=== PATIENT | female | born 2000 | race Caucasian/White ===

== ENCOUNTER 2023-10-17 08:25 | Emergency (ER) | payer OTHER, SELFPAY ==
[2023-10-17 08:26] VITALS: BP 123/81
[2023-10-17 09:55] VITALS: BP 112/72
[2023-10-17 09:58] VITALS: BMI 31.8
--- NOTE | 2023-10-17 10:08 | ED.GENMED ---
History of Present Illness
General
Chief Complaint: Abdominal Symptoms
Source: patient, records and family
Exam Limitations: none
Time Seen by Provider: 10/17/23 09:15
Nursing documentation reviewed up to this point in time: agreed with
Travel History
Have you had any contact with someone who has COVID-19?: No
Do you have any symptoms of coronavirus? Fever > 100 degrees, chills, cough, shortness of breath, sore throat, loss of taste or smell, muscle aches, or headache?: No
History of Present Illness
History of Present Illness:
Patient is a 23-year-old female presents to the emergency department complaining of nausea and vomiting that started yesterday. Patient admits to drinking the night before. Patient had some diarrhea yesterday but none today. Patient denies any
abdominal pain. Patient admits to thirst and feeling dehydrated. Patient has a history of similar episodes in the past. Patient was to have an upper endoscopy but due to insurance issues has not. Patient denies fever or chills. Patient denies
any symptoms. Patient has an IUD and her last period was couple months ago and has very light bleeding now. Unsure if this is actually her period or not.
Past History
Past History
ED Past Medical History: Psychiatric
ED Past Surgical History: None
Patient has exhibited threatening behavior?: No
PSI?: No
Social History
Tobacco: Non-smoker
Personal: Single
Living: with family
Employment: Student
Review of Systems
Review of Systems
All Other Systems: ROS reviewed and negative except as documented in HPI and ROS
Constitutional: Reports fatigue; Denies fever or chills
EENT: Reports no symptoms
Respiratory: Reports no symptoms
Cardiac: Reports no symptoms
ABD/GI: Reports nausea, vomiting, diarrhea and anorexia; Denies abdominal pain, bloody stools or black stools
: Reports no symptoms
Musculoskeletal: Reports no symptoms
Skin: Reports no symptoms
Neurological: Reports no symptoms
Hematologic/Lymphatic: Reports no symptoms
Psychiatric: Reports no symptoms
Phy Exam
Physical Exam
Physical Exam:
Physical Exam
General: mild to moderate distress, alert and appropriate, well nourished, dry mucous membranes
HENT: Normocephalic, supple with no lymphadenopathy, no thyromegaly
Eyes: Clear sclera, conjuctiva without injection
Heart: Regular rhythm and rate. No S3, S4. No murmur.
Lungs: No respiratory distress, no stridor, lung sounds clear and equal bilaterally
Abdomen: Soft, nontender, no organomegaly, no CVA tenderness, BS good
Neuro: Alert and oriented x 3, CN II - XII intact, no motor focality, no cerebellar dysfunction
Skin: no rash
Psychiatric: well kept. interactive and cooperative
Extremities: No edema, cyanosis, tenderness, Good and equal peripheral pulses.
Course
Orders/Labs/Results
Orders:
Orders
10/17/23 10:06
0.9% Sodium Chloride 1000 ml [Nss] 1,000 ml IV BOLUS
Ondansetron Injectable [Zofran] 4 mg IV NOW STA
Pantoprazole [Protonix IV] 80 mg IV NOW STA
10/17/23 10:07
Test Result ONCE
10/17/23 10:33
Complete Blood Count/With Diff Urgent
Comprehensive Metabolic Panel Urgent
HCG, Serum Qualitative Screen Urgent
Lipase Urgent
10/17/23 10:40
Clonazepam [Klonopin] 1 mg PO NOW STA
Abnormal Lab Results
10/17/23
10:33
WBC 10.9 H 10^3/uL
(4.8-10.8)
MCV 79.6 L fL
(81.0-99.0)
MCH 25.7 L pg
(27.0-31.0)
MCHC 32.3 L g/dL
(33.0-37.0)
RDW 16.1 H %
(11.5-14.5)
MPV 10.5 H fL
(7.4-10.4)
Absolute Neuts (auto) 7.7 H 10^3/uL
(1.4-6.5)
Absolute Monos (auto) 1.0 H 10^3/uL
(0.1-0.6)
Lymphocytes % 17.9 L %
(20.5-51.1)
Sodium 134 L mmol/L
(135-145)
Potassium 3.4 L mmol/L
(3.5-5.1)
Lipase 21 L U/L
(23-300)
10/17/23 10:33
10/17/23 10:33
Vital Signs
Initial and Last Documented VS:
Initial Vital Signs
Temp Pulse Resp BP Pulse Ox
98.7 F 94 18 123/81 97
10/17/23 08:26 10/17/23 08:26 10/17/23 08:26 10/17/23 08:26 10/17/23 08:26
Last Documented Vital Signs
Temp Pulse Resp BP Pulse Ox
98.4 F 72 16 112/72 98
10/17/23 10:14 10/17/23 10:14 10/17/23 10:14 10/17/23 10:14 10/17/23 10:14
*Radiology
Radiology exam reviewed: other (na)
*Pulse Oximetry
Patient hypoxic: no
*EKG
Interpreted by ED Provider?: NA
*Pilot Can Router Interpretation
Rate: Pilot Can Router- N/A
*Critical Care Note
Total Time (30-74mins, 75-104mins- exclusive of procedures): Not Applicable
Update Note
Update Note:
Patient feeling better. Will be discharged on Zofran and Protonix.
ED Attending Note
-
Portions of this chart may have been created with voice recognition software.� Occasional wrong word or��sound alike� substitutions may have occurred due to the inherent limitations of voice recognition software.
Discharge Plan
Departure
Patient Disposition: Home (Routine Discharge)
Date of Disposition: 10/17/23
Time of Disposition: 12:38
Patient with high blood pressure during this ER visit?: No
Condition: Fair
Covid-19: Not Applicable
Discharge Problem:
Acute gastritis without hemorrhage, Acute dehydration
Instructions: Dehydration, Adult (DC), [place] Diet, Nausea and Vomiting, Adult (DC)
Prescriptions:
New
ondansetron 8 mg tablet,disintegrating
8 mg PO TID PRN (Reason: nausea and vomiting) Qty: 30 0RF
pantoprazole [Protonix] 40 mg tablet,delayed release (DR/EC)
40 mg PO BID Qty: 30 0RF
No Action
clonazepam 1 mg tablet
1 mg PO HS
folic acid 1 mg Tablet
1 mg PO QPM
hydroxyzine pamoate 25 mg capsule
25 mg PO HS
hydroxyzine pamoate 25 mg capsule
25 mg PO DAILYPRN PRN (Reason: anxiety)
Trintellix 10 mg tablet
10 mg PO QPM
dexmethylphenidate [Focalin XR] 25 mg Capsule,Er Biphasic 50-50
25 mg PO DAILY
ondansetron 4 mg tablet,disintegrating
4 mg PO Q8H PRN (Reason: nausea and vomiting) Qty: 10 0RF
promethazine 25 mg suppository
25 mg VA Q6H PRN (Reason: nausea and vomiting) Qty: 12 0RF
dicyclomine 20 mg tablet
20 mg PO QID Qty: 20 0RF
prochlorperazine maleate [Compazine] 5 mg tablet
5 mg PO BID PRN (Reason: nausea and vomiting) Qty: 14 0RF
Referrals:
Donaldo Murry DO [Family Provider] - Follow up in 5-7 days
Activity Restrictions/Additional Instructions:
Continue present medications and therapy. Avoid alcohol.
Interventions
Interventions:
*Risk Screen - Suicide Last Done: 10/17/23 09:59
*General Assessment Last Done: 10/17/23 09:59
*Neglect/Abuse Screening Last Done: 10/17/23 09:59
*ED COVID-19 Vaccine History Last Done: 10/17/23 09:59
Discharge Date and Time
Print Language: VIETNAMESE
[2023-10-17 10:14] VITALS: BP 112/72
[2023-10-17] MEDS: NSS 1000 IV (10:22)
[2023-10-17] MEDS: PROTONIX IV 80 MG IV (10:22)
[2023-10-17] MEDS: ZOFRAN 4 MG IV (10:22)
[2023-10-17] MEDS: KLONOPIN 1 MG PO (10:48)
[2023-10-17 10:50] LABS: % Basophils 0.6 % (0-2); % Eosinophils 1.6 % (0-6); % Immature Granulocytes 0.3 % (0-0.5); % Lymphocytes 17.9 % (20.5-51.1); % Monocytes 9.3 % (1.7-9.3); % Neutrophils 70.3 % (42.2-75.2); Absolute Basophils 0.1 10^3/uL (0-0.2); Absolute Eosinophils 0.2 10^3/uL (0-0.7); Absolute Neutrophils 7.7 10^3/uL (1.4-6.5); Hemoglobin 12.6 g/dL (12.0-16.0); Mean Corp Hgb Conc. 32.3 g/dL (33.0-37.0); Mean Corpuscular Hgb 25.7 pg (27.0-31.0); Mean Corpuscular Volume 79.6 fL (81.0-99.0); Mean Platelet Volume 10.5 fL (7.4-10.4); Nucleated Red Blood Cells % 0 %; Platelet Count 210 10^3/uL (130-400); Red Cell Dist. Width 16.1 % (11.5-14.5); White Blood Cell Count 10.9 10^3/uL (4.8-10.8)
[2023-10-17 11:08] LABS: ALT (SGPT) 16 U/L (0-35); AST (SGOT) 26 U/L (14-36); Albumin 4.6 g/dl (3.5-5.0); Alkaline Phosphatase 71 U/L (38-126); Blood Urea Nitrogen 9 mg/dl (7-17); Calcium 9.2 mg/dl (8.4-10.2); Carbon Dioxide 25 mmol/L (22-30); Chloride 101 mmol/L (98-107); Estimated Creatinine Clearance > 125 ml/min; Glucose 72 mg/dl (70-99); Lipase 21 U/L (23-300); Potassium 3.4 mmol/L (3.5-5.1); Sodium 134 mmol/L (135-145); Total Bilirubin 0.9 mg/dl (0.2-1.3); eGFR > 60.00
[2023-10-17 11:16] LABS: HCG, Serum Qualitative Screen Negative
[2023-10-17 14:09] VITALS: BP 115/80
== END 2023-10-17 14:11 | disposition home or self-care (01) ==
LOC: EMR 08:25
PROVIDERS: EMERGENCY PHYSICIAN Emergency Medicine; FAMILY PHYSICIAN Family Medicine
DX: K29.00 Acute gastritis without bleeding (principal); E86.0 Dehydration
CPT/HCPCS: 99284; 96374; 96375; 96361; 80053; 83690; 84703; 85025

== ENCOUNTER 2023-11-07 03:18 | Emergency (ER) | payer OTHER, SELFPAY ==
[2023-11-07 03:19] VITALS: BMI 31.7
[2023-11-07 03:22] VITALS: BP 124/86
--- NOTE | 2023-11-07 04:19 | ED.GENMED ---
History of Present Illness
General
Chief Complaint: Throat Problem
Source: patient, family (Mother who is at bedside) and previous hospital records (Previous ED visits for similar complaints of nausea/vomiting. Unremarkable ED evaluations including unremarkable imaging.)
Exam Limitations: none
Time Seen by Provider: 11/07/23 03:51
Nursing documentation reviewed up to this point in time: agreed with
Travel History
Have you had any contact with someone who has COVID-19?: No
Do you have any symptoms of coronavirus? Fever > 100 degrees, chills, cough, shortness of breath, sore throat, loss of taste or smell, muscle aches, or headache?: Yes
Symptoms:: fever, sore throat
History of Present Illness
History of Present Illness:
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 Evaluated at urgent care with reported negative rapid strep.
She attends college at [employer] and came home locally for the weekend and yesterday began with a cough with episodes of posttussive vomiting. She continues with frequent vomiting of clear fluid, unable to hold any liquids down. She has
had a low-grade fever, continues with sore throat but no difficulty swallowing.
She suffered an episode of mononucleosis April 2023.
She has not been taking anything for her symptoms. Previous ED visits for similar nausea and vomiting October 17, 2023 as well as to ED visits June 2023. She has been prescribed ondansetron as well as Compazine and Phenergan. She has these
medications in her apartment at [place], no antiemetics available at home/locally.
She denies diarrhea or constipation. Denies risk of .
She was planned to follow-up with GI regarding frequent nausea and vomiting last month but was unable to follow through with that appointment due to school responsibilities.
Past History
Past History
ED Past Medical History: Psychiatric and Other (Frequent episodes of nausea/vomiting. Mononucleosis April 2023)
ED Past Surgical History: None
Patient has exhibited threatening behavior?: No
PSI?: No
Social History
Tobacco: Non-smoker
Alcohol: Occasional
Drug: None
Personal: Single
Living: with family
Employment: Student
Family History
Family History: Other (Noncontributory)
Phy Exam
Physical Exam
Physical Exam:
GENERAL: 23-year-old female appears her stated age, bright and alert, appears in mild distress. Frequent brief dry cough is noted with intermittent spitting up clear fluid into an emesis basin.
EYE: pupils equal and reactive. anicteric
NECK: Supple, nontender, no meningismus, no significant adenopathy.
ENT: posterior pharynx has mildly red, minimally enlarged tonsils without exudate nor ulcerations, oral mucosa is moist. TM clear b/l, nares have mildly boggy turbinates with scant clear rhinorrhea.
CARDIAC: Regular rate and rhythm. no murmur.
LUNGS: Clear breath sounds bilaterally, no acute respiratory distress, no wheezes/rales/rhonchi. Frequent dry cough.
ABDOMEN: Soft, nondistended, without focal tenderness, no r/g, no cvat. normoactive BS.
NEUROLOGICAL: Alert and oriented x3, no focal neuro deficits. Gait is carrasco and steady.
SKIN: Warm and dry, normal color, skin intact. No rash.
MUSCULOSKELETAL: No C/C/E. peripheral pulses are full and equal b/l. No palpable tenderness.
PSYCH: Normal and appropriate interaction.
Course
Orders/Labs/Results
Orders:
Orders
11/07/23 03:49
COVID-19 Antigen Urgent
Source: Nasal Swab
Influenza A+B Rapid Molecular Urgent
LAURA Source: Nasal Swab
Specimen Description:
11/07/23 04:18
0.9% Sodium Chloride 1000 ml [Nss] 1,000 ml IV BOLUS
Ondansetron Injectable [Zofran] 4 mg IV NOW STA
Test Result ONCE
11/07/23 04:36
Complete Blood Count/With Diff Urgent
Comprehensive Metabolic Panel Urgent
HCG, Serum Qualitative Screen Urgent
Lipase Urgent
11/07/23 05:48
Ibuprofen [Caldolor] 800 mg 0.9% Sodium Chloride 250 ml [Nss] 250 ml IV NOW
11/07/23 05:56
Rapid Strep Group A Urgent
LAURA Source: Throat/Pharynx
Specimen Description:
Date Specimen was Collected: 11/07/23
Time Specimen was Collected: 05:45
Abnormal Lab Results
11/07/23
04:36
WBC 13.8 H 10^3/uL
(4.8-10.8)
MCV 78.1 L fL
(81.0-99.0)
MCH 26.0 L pg
(27.0-31.0)
RDW 15.9 H %
(11.5-14.5)
Absolute Neuts (auto) 10.9 H 10^3/uL
(1.4-6.5)
Absolute Monos (auto) 1.0 H 10^3/uL
(0.1-0.6)
Neutrophils % 79.3 H %
(42.2-75.2)
Lymphocytes % 12.0 L %
(20.5-51.1)
Creatinine 0.5 L mg/dL
(0.6-1.0)
Glucose 109 H mg/dl
(70-99)
AST 43 H U/L
(14-36)
ALT 52 H U/L
(0-35)
11/07/23 04:36
11/07/23 04:36
Vital Signs
Initial and Last Documented VS:
Initial Vital Signs
Temp Pulse Resp BP Pulse Ox
99.9 F 110 20 124/86 98
11/07/23 03:22 11/07/23 03:22 11/07/23 03:22 11/07/23 03:22 11/07/23 03:22
Last Documented Vital Signs
Temp Pulse Resp BP Pulse Ox
99.2 F 110 20 104/72 96
11/07/23 04:37 11/07/23 03:22 11/07/23 03:22 11/07/23 06:11 11/07/23 06:15
MDM/Problems Addressed
Differential Diagnosis Includes:
Acute pharyngitis with febrile illness/URI accompanied with dry cough and frequent episodes of posttussive vomiting.
Several previous ED visits for similar complaints of recurrent vomiting with unremarkable ED evaluation, unremarkable imaging.
Overall nontoxic in appearance, clinically appears euvolemic.
She is noted to have low-grade fever, initial mild tachycardia.
Will initiate IV fluids and give an IV dose of Zofran. Will check labs assess for electrolyte abnormality, acute kidney injury/dehydration.
Posterior pharynx is mildly red but no significant edema, no exudate. Previously reported rapid strep was negative. At this point no indication to repeat.
Abdomen is soft, nontender. No indication for imaging at this point.
Rapid COVID and influenza are pending.
*Pulse Oximetry
Patient hypoxic: no
*Critical Care Note
Total Time (30-74mins, 75-104mins- exclusive of procedures): Not Applicable
Update Note
Update Note:
Patient has been sleeping after 1 IV dose of Zofran and IV fluids.
There has been complete resolution of cough and intermittent retching, vomiting.
She continues with sore throat which has improved with IV ibuprofen. Low-grade fever has resolved as well.
Labs show mildly elevated white blood cell count of 13.8, minimally elevated LFTs, otherwise chemistries are unremarkable with normal BUN and creatinine, normal electrolytes, nothing to signify dehydration.
COVID and influenza testing are negative.
Rapid strep is again negative.
I suspect a viral pharyngitis and recommend continuing with supportive measures, limiting diet to clear liquids, Tylenol as needed for fever and pain.
A prescription for Zofran ODT has been provided for as needed nausea.
Recommend prompt follow-up with PCP for recheck.
Patient currently presenting with mom this weekend.
ED Attending Note
-
Portions of this chart may have been created with voice recognition software.� Occasional wrong word or��sound alike� substitutions may have occurred due to the inherent limitations of voice recognition software.
Discharge Plan
Departure
Patient Disposition: Home (Routine Discharge)
Date of Disposition: 11/07/23
Time of Disposition: 07:33
Patient with high blood pressure during this ER visit?: No
Condition: Good
Discharge Problem:
Acute pharyngitis, Recurrent nausea and vomiting
Instructions: Clear Liquid Diet, Sore Throat, Adult (DC), Nausea and Vomiting, Adult (DC)
Prescriptions:
New
ondansetron 4 mg tablet,disintegrating
4 mg PO QID PRN (Reason: nausea and vomiting) Qty: 20 0RF
No Action
clonazepam 1 mg tablet
1 mg PO HS
folic acid 1 mg Tablet
1 mg PO QPM
hydroxyzine pamoate 25 mg capsule
25 mg PO HS
hydroxyzine pamoate 25 mg capsule
25 mg PO DAILYPRN PRN (Reason: anxiety)
Trintellix 10 mg tablet
10 mg PO QPM
dexmethylphenidate [Focalin XR] 25 mg Capsule,Er Biphasic 50-50
25 mg PO DAILY
ondansetron 4 mg tablet,disintegrating
4 mg PO Q8H PRN (Reason: nausea and vomiting) Qty: 10 0RF
promethazine 25 mg suppository
25 mg CA Q6H PRN (Reason: nausea and vomiting) Qty: 12 0RF
dicyclomine 20 mg tablet
20 mg PO QID Qty: 20 0RF
prochlorperazine maleate [Compazine] 5 mg tablet
5 mg PO BID PRN (Reason: nausea and vomiting) Qty: 14 0RF
ondansetron 8 mg tablet,disintegrating
8 mg PO TID PRN (Reason: nausea and vomiting) Qty: 30 0RF
pantoprazole [Protonix] 40 mg tablet,delayed release (DR/EC)
40 mg PO BID Qty: 30 0RF
Referrals:
Donaldo Murry DO [Family Provider] - Call in 1-3 days for appt
Interventions
Interventions:
*Risk Screen - Suicide Last Done: 11/07/23 03:22
*General Assessment Last Done: 11/07/23 03:22
*Neglect/Abuse Screening Last Done: 11/07/23 03:22
ED- Fall Risk Assessment Last Done: 11/07/23 03:22
*ED COVID-19 Vaccine History Last Done: 11/07/23 03:22
PW-Jnwkno-Hbksprdlou Assessment Last Done: 11/07/23 04:00
ED-EENT Assessment Last Done: 11/07/23 04:00
ED- Pulmonary Assessment Last Done: 11/07/23 04:00
Discharge Date and Time
Print Language: UKRAINIAN
[2023-11-07 04:26] LABS: COVID-19 Antigen Negative (Negative)
[2023-11-07] MEDS: ZOFRAN 4 MG IV (04:34)
[2023-11-07] MEDS: NSS 1000 IV (04:34)
[2023-11-07 04:40] VITALS: BP 112/66
[2023-11-07 04:46] LABS: % Basophils 0.5 % (0-2); % Eosinophils 0.7 % (0-6); % Immature Granulocytes 0.3 % (0-0.5); % Monocytes 7.2 % (1.7-9.3); % Neutrophils 79.3 % (42.2-75.2); Absolute Basophils 0.1 10^3/uL (0-0.2); Absolute Eosinophils 0.1 10^3/uL (0-0.7); Absolute Lymphocytes 1.7 10^3/uL (1.2-3.4); Absolute Neutrophils 10.9 10^3/uL (1.4-6.5); Hematocrit 39.3 % (37.0-47.0); Hemoglobin 13.1 g/dL (12.0-16.0); Mean Corp Hgb Conc. 33.3 g/dL (33.0-37.0); Mean Corpuscular Volume 78.1 fL (81.0-99.0); Mean Platelet Volume 10.3 fL (7.4-10.4); Nucleated Red Blood Cells % 0 %; Platelet Count 275 10^3/uL (130-400); Red Blood Cell Count 5.03 10^6/uL (4.20-5.40); Red Cell Dist. Width 15.9 % (11.5-14.5); White Blood Cell Count 13.8 10^3/uL (4.8-10.8)
[2023-11-07 04:59] LABS: HCG, Serum Qualitative Screen Negative
[2023-11-07 05:00] VITALS: BP 107/73
[2023-11-07 05:07] LABS: ALT (SGPT) 52 U/L (0-35); AST (SGOT) 43 U/L (14-36); Albumin 4.7 g/dl (3.5-5.0); Alkaline Phosphatase 90 U/L (38-126); Blood Urea Nitrogen 8 mg/dl (7-17); Calcium 9.4 mg/dl (8.4-10.2); Carbon Dioxide 25 mmol/L (22-30); Chloride 107 mmol/L (98-107); Estimated Creatinine Clearance > 125 ml/min; Glucose 109 mg/dl (70-99); Lipase 44 U/L (23-300); Sodium 139 mmol/L (135-145); Total Bilirubin 0.6 mg/dl (0.2-1.3); Total Protein 7.4 g/dl (6.3-8.2); eGFR > 60.00
[2023-11-07] MEDS: CALDOLOR 258 MG IV (06:05)
[2023-11-07 06:11] VITALS: BP 104/72
[2023-11-07 07:52] VITALS: BP 108/67
--- NOTE | 2023-11-07 07:52 | EDRN ---
Reviewed discharge instructions with patient and her mother. Verbalized understanding.
== END 2023-11-07 07:55 | disposition home or self-care (01) ==
LOC: EMR 03:18
PROVIDERS: EMERGENCY PHYSICIAN Emergency Medicine; FAMILY PHYSICIAN Family Medicine
DX: J02.9 Acute pharyngitis, unspecified (principal); R11.2 Nausea with vomiting, unspecified
CPT/HCPCS: 99284; 96365; 96375; 96361; 80053; 83690; 84703; 85025; 87070; 87502; 87811; 87880

== ENCOUNTER 2024-05-07 12:56 | Emergency (ER) | payer OTHER, SELFPAY ==
[2024-05-07] VITALS (7 sets, daily range): BP systolic 100–154; BP diastolic 49–83; BMI 28.8
--- NOTE | 2024-05-07 14:05 | ED.GENMED ---
History of Present Illness
General
Chief Complaint: Abdominal Symptoms
Source: patient
Time Seen by Provider: 05/07/24 13:51
History of Present Illness
History of Present Illness:
24yoF with a history of anxiety presenting for evaluation of abdominal pain. Patient reports chronic issues with nausea and vomiting for the past year or so. She has been having daily vomiting over the past 6 months and she has lost 40 pounds since
February. She developed R sided abdominal pain earlier today which prompted her to come to the ED. Patient has been seen by GI for her symptoms. She had an endoscopy at [place] in February which was reportedly normal. She was also tested for Celiac
which was negative. Patient missed her appts for a gallbladder ultrasound and a colonoscopy due to her family member being ill and she is in the process of rescheduling this. Patient has tried Zofran without much relief. She was also prescribed
suppositories (patient unsure of the name) which she only took once due to it causing diarrhea. No previous abdominal surgeries. Of note, patient smokes marijuana every night over the past few months.
Past History
Past History
ED Past Medical History: Psychiatric and Other (Frequent episodes of nausea/vomiting. Mononucleosis April 2023)
ED Past Surgical History: None
Patient has exhibited threatening behavior?: No
PSI?: No
Social History
Tobacco: Non-smoker
Alcohol: Occasional
Drug: None
Personal: Single
Living: with family
Employment: Student
Family History
Family History: Other (Noncontributory)
Phy Exam
General Physical Exam
General Presentation: well appearing and no apparent distress
General age: appears stated age
General Skin: warm and dry
General Habitus: normal
General Mental: alert
ENT Exam
ENT Exam: normocephalic
Cardiovascular Exam
Cardiovascular Exam: regular rate/rhythm
Pulmonary Exam
Pulmonary Exam: lungs clear, no respiratory distress, no crackles and no wheezing
Gastrointestinal Exam
Gastrointestinal Exam: soft, non distended and other (+Mild R sided abd tenderness. No guarding or rebound. )
Skin Exam
Skin Exam: normal color and warm/dry
Psychiatric Exam
Psychiatric Exam: normal mood/affect
Course
Orders/Labs/Results
Orders:
Orders
05/07/24 14:04
CT Abd/pel W Iv And Oral Contr Urgent
Comment:
Reason For Exam: RLQ pain, weight loss, vomiting
0.9% Sodium Chloride 500 ml [Nss] 500 ml IV BOLUS
Iohexol [Omnipaque] See Protocol PO NOW STA
Ondansetron Injectable [Zofran] 4 mg IV NOW STA
Test Result ONCE
05/07/24 14:16
Complete Blood Count/With Diff Urgent
Comprehensive Metabolic Panel Urgent
Free T4 Urgent
HCG, Serum Qualitative Screen Urgent
Lipase Urgent
Magnesium Urgent
TSH Reflex To Free T4 Urgent
05/07/24 17:41
Promethazine [Phenergan] 25 mg IM NOW STA
Abnormal Lab Results
05/07/24
14:16
Hgb 11.9 L g/dL
(12.0-16.0)
Hct 36.4 L %
(37.0-47.0)
MCV 78.3 L fL
(81.0-99.0)
MCH 25.6 L pg
(27.0-31.0)
MCHC 32.7 L g/dL
(33.0-37.0)
RDW 15.4 H %
(11.5-14.5)
MPV 10.8 H fL
(7.4-10.4)
Absolute Neuts (auto) 7.1 H 10^3/uL
(1.4-6.5)
Neutrophils % 80.1 H %
(42.2-75.2)
Lymphocytes % 13.5 L %
(20.5-51.1)
BUN 5 L mg/dl
(7-17)
TSH (Reflex) 0.23 L uIU/ml
(0.47-4.68)
05/07/24 14:16
05/07/24 14:16
Vital Signs
Initial and Last Documented VS:
Initial Vital Signs
Temp Pulse Resp BP Pulse Ox
98.6 F 109 16 154/83 100
05/07/24 12:57 05/07/24 12:57 05/07/24 12:57 05/07/24 12:57 05/07/24 12:57
Last Documented Vital Signs
Temp Pulse Resp BP Pulse Ox
98.6 F 77 14 110/71 96
05/07/24 12:57 05/07/24 18:00 05/07/24 18:00 05/07/24 18:00 05/07/24 18:00
MDM/Problems Addressed
Differential Diagnosis Includes:
24yoF here with R sided abd pain that began today as well as ongoing nausea/vomiting/diarrhea x several months with weight loss. Daily marijuana use. VSS. She is well appearing in no distress. No signs of peritonitis on abdominal exam. Differential
diagnosis includes but is not limited to: appendicitis, colitis, biliary colic, dehydration
Initial ED plan: Check abdominal labs, magnesium, TSH, HCG, and CT abdomen. IV Zofran and fluid bolus for symptoms.
*Critical Care Note
Total Time (30-74mins, 75-104mins- exclusive of procedures): Not Applicable
Update Note
Update Note:
TSH mildly low but T4 is normal. Remainder of labs overall unremarkable including normal white count, renal function, electrolytes. CT shows nonspecific segmental wall thickening of ascending colon. Appendix normal on imaging. She is stable for
discharge. She has an appt scheduled with GI in 3 days. She also has outpatient stool studies that were ordered and she was encouraged to complete this. Prescriptions given for Zofran and Bentyl. She was discharged in stable condition.
ED Attending Note
-
Portions of this chart may have been created with voice recognition software.� Occasional wrong word or��sound alike� substitutions may have occurred due to the inherent limitations of voice recognition software.
Discharge Plan
Departure
Patient Disposition: Home (Routine Discharge)
Date of Disposition: 05/07/24
Time of Disposition: 18:15
Patient with high blood pressure during this ER visit?: No
Discharge Problem:
Nausea and vomiting, Colitis
Instructions: Nausea and Vomiting, Adult (DC)
Prescriptions:
New
ondansetron 8 mg tablet,disintegrating
8 mg PO Q8H PRN (Reason: nausea and vomiting) Qty: 30 0RF
dicyclomine 20 mg tablet
20 mg PO QID PRN (Reason: abdominal cramping) Qty: 20 0RF
No Action
clonazepam 1 mg tablet
1 mg PO HS
folic acid 1 mg Tablet
1 mg PO QPM
hydroxyzine pamoate 25 mg capsule
25 mg PO HS
hydroxyzine pamoate 25 mg capsule
25 mg PO DAILYPRN PRN (Reason: anxiety)
Trintellix 10 mg tablet
10 mg PO QPM
dexmethylphenidate [Focalin XR] 25 mg Capsule,Er Biphasic 50-50
25 mg PO DAILY
ondansetron 4 mg tablet,disintegrating
4 mg PO Q8H PRN (Reason: nausea and vomiting) Qty: 10 0RF
promethazine 25 mg suppository
25 mg SD Q6H PRN (Reason: nausea and vomiting) Qty: 12 0RF
dicyclomine 20 mg tablet
20 mg PO QID Qty: 20 0RF
prochlorperazine maleate [Compazine] 5 mg tablet
5 mg PO BID PRN (Reason: nausea and vomiting) Qty: 14 0RF
ondansetron 8 mg tablet,disintegrating
8 mg PO TID PRN (Reason: nausea and vomiting) Qty: 30 0RF
pantoprazole [Protonix] 40 mg tablet,delayed release (DR/EC)
40 mg PO BID Qty: 30 0RF
ondansetron 4 mg tablet,disintegrating
4 mg PO QID PRN (Reason: nausea and vomiting) Qty: 20 0RF
Referrals:
Donaldo Murry DO [Family Provider] -
Activity Restrictions/Additional Instructions:
Take Zofran as needed for nausea. Take Bentyl as needed for abdominal pain. Drink plenty of fluids and eat a bland diet.
Please follow-up with gastroenterology on Wednesday. Return to the ER with any new or worsening symptoms.
Interventions
Interventions:
*Risk Screen - Suicide Last Done: 05/07/24 12:57
*General Assessment Last Done: 05/07/24 14:18
*Neglect/Abuse Screening Last Done: 05/07/24 12:57
ED- Fall Risk Assessment Last Done: 05/07/24 14:18
*ED COVID-19 Vaccine History Last Done: 05/07/24 14:18
*Nursing Disposition Last Done: 05/07/24 18:50
OE-Ajmoyu-Lewnkuoyay Assessment Last Done: 05/07/24 14:18
Discharge Date and Time
Discharge Date/Time: 05/07/24 18:57
Print Language: MAORI
[2024-05-07] MEDS: ZOFRAN 4 MG IV (14:20)
[2024-05-07] MEDS: NSS 500 IV (14:20)
[2024-05-07] MEDS: OMNIPAQUE 50 ML PO (14:20)
[2024-05-07 14:30] LABS: % Basophils 0.6 % (0-2); % Eosinophils 0.3 % (0-6); % Immature Granulocytes 0.2 % (0-0.5); % Lymphocytes 13.5 % (20.5-51.1); % Monocytes 5.3 % (1.7-9.3); % Neutrophils 80.1 % (42.2-75.2); Absolute Basophils 0.1 10^3/uL (0-0.2); Absolute Lymphocytes 1.2 10^3/uL (1.2-3.4); Absolute Monocytes 0.5 10^3/uL (0.1-0.6); Absolute Neutrophils 7.1 10^3/uL (1.4-6.5); Hematocrit 36.4 % (37.0-47.0); Hemoglobin 11.9 g/dL (12.0-16.0); Mean Corp Hgb Conc. 32.7 g/dL (33.0-37.0); Mean Corpuscular Hgb 25.6 pg (27.0-31.0); Mean Corpuscular Volume 78.3 fL (81.0-99.0); Mean Platelet Volume 10.8 fL (7.4-10.4); Nucleated Red Blood Cells % 0 %; Platelet Count 208 10^3/uL (130-400); Red Blood Cell Count 4.65 10^6/uL (4.20-5.40); Red Cell Dist. Width 15.4 % (11.5-14.5); White Blood Cell Count 8.9 10^3/uL (4.8-10.8)
[2024-05-07 14:40] LABS: HCG, Serum Qualitative Screen Negative
[2024-05-07 14:42] LABS: Chloride 105 mmol/L (98-107)
[2024-05-07 14:45] LABS: ALT (SGPT) 23 U/L (0-35); AST (SGOT) 24 U/L (14-36); Albumin 4.7 g/dl (3.5-5.0); Blood Urea Nitrogen 5 mg/dl (7-17); Calcium 9.4 mg/dl (8.4-10.2); Carbon Dioxide 26 mmol/L (22-30); Estimated Creatinine Clearance 111 ml/min; Glucose 73 mg/dl (70-99); Magnesium 1.9 mg/dl (1.6-2.3); Sodium 143 mmol/L (135-145); Total Bilirubin 0.5 mg/dl (0.2-1.3); eGFR > 60.00
[2024-05-07 14:46] LABS: Alkaline Phosphatase 60 U/L (38-126); Lipase 24 U/L (23-300)
[2024-05-07 15:22] LABS: TSH Reflex To Free T4 0.23 uIU/ml (0.47-4.68)
[2024-05-07 15:51] LABS: Free T4 1.48 ng/dl (0.78-2.19)
[2024-05-07] MEDS: PHENERGAN 25 MG IM (17:58)
== END 2024-05-07 18:57 | disposition home or self-care (01) ==
LOC: EMR 12:56
PROVIDERS: Physician Assistant; EMERGENCY PHYSICIAN Student in an Organized Health Care Education/Training Program; FAMILY PHYSICIAN Family Medicine
DX: K52.9 Noninfective gastroenteritis and colitis, unspecified (principal); R11.2 Nausea with vomiting, unspecified
CPT/HCPCS: 96374; 96375; 96361; 99284; 74177; 80053; 83690; 83735; 84439; 84443; 84703; 85025; Q9967

== ENCOUNTER 2024-06-14 06:19 | Day surgery (SDC) | payer OTHER, SELFPAY | END 2024-06-14 11:22 | disposition home or self-care (01) | LOC: GI 06:19 | PROVIDERS: ATTENDING PHYSICIAN Internal Medicine Gastroenterology | DX: K52.9 Noninfective gastroenteritis and colitis, unspecified (principal) | CPT/HCPCS: 45380; 88305 ==

== ENCOUNTER 2024-06-16 10:56 | Emergency (ER) | payer OTHER, SELFPAY ==
[2024-06-16 10:58] VITALS: BP 113/80
--- NOTE | 2024-06-16 11:07 | EDRN ---
the pt was brought back from triage to Crisis Room #2 via w/c
[2024-06-16 11:22] VITALS: BP 136/71; BMI 27.8
--- NOTE | 2024-06-16 11:45 | ED.GENMED ---
History of Present Illness
General
Chief Complaint: Crisis Evaluation
Source: patient
Exam Limitations: none
Time Seen by Provider: 06/16/24 11:35
Nursing documentation reviewed up to this point in time: agreed with
History of Present Illness
History of Present Illness:
24-year-old female presents emergency department due to agitation. She got very upset after she was throwing up and could not complete her gastric emptying study. He states she had eaten eggs and she has never eaten eggs before.
Past History
Past History
ED Past Medical History: Psychiatric and Other (Frequent episodes of nausea/vomiting. Mononucleosis April 2023)
ED Past Surgical History: None
Patient has exhibited threatening behavior?: No
PSI?: No
Social History
Tobacco: Non-smoker
Alcohol: Occasional
Drug: None
Personal: Single
Living: with family
Employment: Student
Family History
Family History: Other (Noncontributory)
Review of Systems
Review of Systems
Allergies reviewed?: Yes
All Other Systems: Not applicable
Constitutional: Reports no symptoms
EENT: Reports no symptoms
Respiratory: Reports no symptoms
Cardiac: Reports no symptoms
ABD/GI: Reports no symptoms
: Reports no symptoms
Musculoskeletal: Reports no symptoms
Skin: Reports no symptoms
Neurological: Reports no symptoms
Endocrine: Reports no symptoms
Hematologic/Lymphatic: Reports no symptoms
Psychiatric: Reports anxiety; Denies suicidal
Phy Exam
Physical Exam
Physical Exam:
Physical Exam
General: no apparent distress, not acutely ill
Neck: supple. no meningeal signs.
Heart: equal radial pulses.
HEENT: EOMI
Lungs: no acute respiratory distress.
Abdomen: Nondistended
Neuro: alert and oriented. no focal neurological deficits
Skin: no rash
Psychiatric: well kept. interactive and cooperative
Extremities: no edema.
Course
Orders/Labs/Results
Orders:
Orders
06/16/24 11:05
1:1 Observation - Suicide/ Violent Behavior As Directed
Crisis Consult Urgent
Reason for Consult: si
Vital Signs
Initial and Last Documented VS:
Initial Vital Signs
Temp Pulse Resp BP Pulse Ox
98.0 F 73 20 113/80 99
06/16/24 10:58 06/16/24 10:58 06/16/24 10:58 06/16/24 10:58 06/16/24 10:58
Last Documented Vital Signs
Temp Pulse Resp BP Pulse Ox
98.5 F 82 20 136/71 99
06/16/24 11:22 06/16/24 11:22 06/16/24 11:22 06/16/24 11:22 06/16/24 11:22
MDM/Problems Addressed
Differential Diagnosis Includes:
Depression, anxiety
MDM/Problems Addressed:
24-year-old female with anxiety, agitated after a test. Do not suspect suicidal ideation. Patient safe for discharge.
*Critical Care Note
Total Time (30-74mins, 75-104mins- exclusive of procedures): Not Applicable
Data Reviewed
Prescriptions/Medications Considered But Not Given:
Prescriptions not indicated
Further Testing Considered But Not Given:
Labs not indicated
ED Attending Note
-
Portions of this chart may have been created with voice recognition software.� Occasional wrong word or��sound alike� substitutions may have occurred due to the inherent limitations of voice recognition software.
Discharge Plan
Departure
Patient Disposition: Home (Routine Discharge)
Date of Disposition: 06/16/24
Time of Disposition: 11:50
Patient with high blood pressure during this ER visit?: Yes
Condition: Good
Discharge Problem:
Adjustment disorder
Instructions: Adjustment Disorder, BLOOD PRESSURE
Prescriptions:
No Action
clonazepam 1 mg tablet
1 mg PO HS
folic acid 1 mg Tablet
1 mg PO QPM
hydroxyzine pamoate 25 mg capsule
25 mg PO HS
hydroxyzine pamoate 25 mg capsule
25 mg PO DAILYPRN PRN (Reason: anxiety)
Trintellix 10 mg tablet
10 mg PO QPM
dexmethylphenidate [Focalin XR] 25 mg Capsule,Er Biphasic 50-50
25 mg PO DAILY
dicyclomine 20 mg tablet
20 mg PO QID Qty: 20 0RF
prochlorperazine maleate [Compazine] 5 mg tablet
5 mg PO BID PRN (Reason: nausea and vomiting) Qty: 14 0RF
pantoprazole [Protonix] 40 mg tablet,delayed release (DR/EC)
40 mg PO BID Qty: 30 0RF
dicyclomine 20 mg tablet
20 mg PO QID PRN (Reason: abdominal cramping) Qty: 20 0RF
Activity Restrictions/Additional Instructions:
Follow-up with therapist and primary care. Return for any concerns.
Interventions
Interventions:
*Risk Screen - Suicide Last Done: 06/16/24 10:58
*General Assessment Last Done: 06/16/24 10:58
*Neglect/Abuse Screening Last Done: 06/16/24 10:58
ED- Fall Risk Assessment Last Done: 06/16/24 11:22
*ED COVID-19 Vaccine History Last Done: 06/16/24 11:22
ED-Psychological Assessment Last Done: 06/16/24 11:22
Discharge Date and Time
Print Language: [place]
[2024-06-16 12:09] VITALS: BP 115/81
== END 2024-06-16 12:13 | disposition home or self-care (01) ==
LOC: EMR 10:56
PROVIDERS: EMERGENCY PHYSICIAN Emergency Medicine
DX: F43.22 Adjustment disorder with anxiety (principal)
CPT/HCPCS: 99283

== ENCOUNTER → 2024-07-28 14:09 | Outpatient (REF) | payer OTHER, SELFPAY | LOC: WDC 14:09 | PROVIDERS: ATTENDING PHYSICIAN Nurse Practitioner Adult Health | DX: N63.20 Unspecified lump in the left breast, unspecified quadrant (principal); N63.21 Unspecified lump in the left breast, upper outer quadrant | CPT/HCPCS: 76642 ==

== ENCOUNTER 2024-09-25 19:20 | Emergency (ER) | payer OTHER, SELFPAY ==
[2024-09-25 19:21] VITALS: BP 133/90
[2024-09-25 19:44] LABS: % Basophils 0.8 % (0-2); % Eosinophils 2.8 % (0-6); % Immature Granulocytes 0.2 % (0-0.5); % Lymphocytes 34.8 % (20.5-51.1); % Monocytes 8.7 % (1.7-9.3); % Neutrophils 52.7 % (42.2-75.2); Absolute Basophils 0.1 10^3/uL (0-0.2); Absolute Eosinophils 0.2 10^3/uL (0-0.7); Absolute Lymphocytes 2.1 10^3/uL (1.2-3.4); Absolute Monocytes 0.5 10^3/uL (0.1-0.6); Absolute Neutrophils 3.2 10^3/uL (1.4-6.5); Hematocrit 41.7 % (37.0-47.0); Hemoglobin 13.3 g/dL (12.0-16.0); Mean Corp Hgb Conc. 31.9 g/dL (33.0-37.0); Mean Corpuscular Hgb 25.7 pg (27.0-31.0); Mean Corpuscular Volume 80.7 fL (81.0-99.0); Mean Platelet Volume 10.5 fL (7.4-10.4); Nucleated Red Blood Cells % 0 %; Platelet Count 223 10^3/uL (130-400); Red Blood Cell Count 5.17 10^6/uL (4.20-5.40); Red Cell Dist. Width 16.3 % (11.5-14.5)
[2024-09-25 19:55] LABS: HCG, Serum Qualitative Screen Negative
[2024-09-25 19:59] LABS: ALT (SGPT) 19 U/L (0-35); AST (SGOT) 20 U/L (14-36); Alkaline Phosphatase 66 U/L (38-126); Blood Urea Nitrogen 10 mg/dl (7-17); Calcium 9.8 mg/dl (8.4-10.2); Carbon Dioxide 26 mmol/L (22-30); Chloride 102 mmol/L (98-107); Glucose 83 mg/dl (70-99); Potassium 4.2 mmol/L (3.5-5.1); Sodium 138 mmol/L (135-145); Total Bilirubin 0.8 mg/dl (0.2-1.3); Total Protein 7.7 g/dl (6.3-8.2); eGFR > 60.00
[2024-09-25 20:10] LABS: Troponin I < 0.012 ng/ml
[2024-09-25 20:39] VITALS: BP 136/90
--- NOTE | 2024-09-25 22:03 | ED.GENMED ---
History of Present Illness
General
Chief Complaint: Medication Reaction
Source: patient
Exam Limitations: none
Time Seen by Provider: 09/25/24 20:47
Nursing documentation reviewed up to this point in time: agreed with
History of Present Illness
History of Present Illness:
24-year-old female presenting to the emergency department today with concerns of intermittent chest pain dizziness over the past 4 days. Seem to occur after she was started on Seroquel 2 weeks ago. Also on additional new psychiatric medications.
Denies significant ongoing symptoms here during my examination. No recent illness. No numbness weakness currently
Past History
Past History
ED Past Medical History: Psychiatric and Other (Frequent episodes of nausea/vomiting. Mononucleosis April 2023)
ED Past Surgical History: None
Patient has exhibited threatening behavior?: No
PSI?: No
Social History
Tobacco: Non-smoker
Alcohol: Occasional
Drug: None
Personal: Single
Living: with family
Employment: Student
Family History
Family History: Other (Noncontributory)
Review of Systems
Review of Systems
Allergies reviewed?: Yes
All Other Systems: ROS reviewed and negative except as documented in HPI and ROS
Phy Exam
Physical Exam
Physical Exam:
GENERAL: Alert , in no apparent distress
EYE: pupils equal and reactive
NECK: Supple, no significant adenopathy.
ENT: o/p clr, mmm.
CARDIAC: Regular rate and rhythm .
LUNGS: Clear breath sounds bilaterally, no acute respiratory distress, no wheezes/rales/rhonchi
ABDOMEN: Soft, without focal tenderness, no r/g, no cvat
NEUROLOGICAL: Alert and oriented, no focal neuro deficits 5-5 upper and lower extremity strength normal sensation. Able to ambulate well.
SKIN: Warm and dry, skin intact.
MUSCULOSKELETAL: No edema, well perfused.
PSYCH: Normal and appropriate interaction.
Course
Orders/Labs/Results
Orders:
Orders
09/25/24 19:25
Electrocardiogram (*1) Urgent
Reason for Study: Chest Pain
EKG- Treatment ONCE
09/25/24 19:26
Test Result ONCE
09/25/24 19:33
Complete Blood Count/With Diff Urgent
Comprehensive Metabolic Panel Urgent
HCG, Serum Qualitative Screen Urgent
Comment: Notify provider if positive test present
Troponin I Urgent
Abnormal Lab Results
09/25/24
19:33
MCV 80.7 L fL
(81.0-99.0)
MCH 25.7 L pg
(27.0-31.0)
MCHC 31.9 L g/dL
(33.0-37.0)
RDW 16.3 H %
(11.5-14.5)
MPV 10.5 H fL
(7.4-10.4)
09/25/24 19:33
09/25/24 19:33
Vital Signs
Initial and Last Documented VS:
Initial Vital Signs
Temp Pulse Resp BP Pulse Ox
98.1 F 71 20 133/90 100
09/25/24 19:21 09/25/24 19:21 09/25/24 19:21 09/25/24 19:21 09/25/24 19:21
Last Documented Vital Signs
Temp Pulse Resp BP Pulse Ox
98.1 F 92 28 136/90 100
09/25/24 19:21 09/25/24 20:39 09/25/24 20:39 09/25/24 20:39 09/25/24 20:39
MDM/Problems Addressed
MDM/Problems Addressed:
24-year-old female presenting to the emergency department today with concerns of dizziness over the past few days. Recently started on Seroquel. Here vital signs are normal patient with normal neurologic evaluation labs unremarkable troponin
negative EKG normal. No signs of any emergent pathology symptoms could be secondary to side effects of Seroquel. Advised for close outpatient follow-up with psychiatry. Return precautions given.
*Critical Care Note
Total Time (30-74mins, 75-104mins- exclusive of procedures): Not Applicable
ED Attending Note
-
Portions of this chart may have been created with voice recognition software.� Occasional wrong word or��sound alike� substitutions may have occurred due to the inherent limitations of voice recognition software.
Discharge Plan
Departure
Patient Disposition: Home (Routine Discharge)
Date of Disposition: 09/25/24
Time of Disposition: 22:03
Patient with high blood pressure during this ER visit?: No
Condition: Good
Covid-19: Not Applicable
Discharge Problem:
Medication side effect
Prescriptions:
No Action
clonazepam 1 mg tablet
1 mg PO HS
folic acid 1 mg Tablet
1 mg PO QPM
hydroxyzine pamoate 25 mg capsule
25 mg PO HS
hydroxyzine pamoate 25 mg capsule
25 mg PO DAILYPRN PRN (Reason: anxiety)
Trintellix 10 mg tablet
10 mg PO QPM
dexmethylphenidate [Focalin XR] 25 mg Capsule,Er Biphasic 50-50
25 mg PO DAILY
dicyclomine 20 mg tablet
20 mg PO QID Qty: 20 0RF
prochlorperazine maleate [Compazine] 5 mg tablet
5 mg PO BID PRN (Reason: nausea and vomiting) Qty: 14 0RF
pantoprazole [Protonix] 40 mg tablet,delayed release (DR/EC)
40 mg PO BID Qty: 30 0RF
dicyclomine 20 mg tablet
20 mg PO QID PRN (Reason: abdominal cramping) Qty: 20 0RF
Referrals:
UNKNOWN - PT DOES,NOT KNOW [Family Provider] -
Activity Restrictions/Additional Instructions:
You came to the emergency department today with symptoms that could be related to your recent change in medications. Please follow closely with your psychiatrist. Return for any worsening, new or concerning symptoms.
Interventions
Interventions:
*Risk Screen - Suicide Last Done: 09/25/24 19:21
*General Assessment Last Done: 09/25/24 19:21
*Neglect/Abuse Screening Last Done: 09/25/24 19:21
*ED- Fall Risk Assessment Last Done: 09/25/24 22:34
*ED COVID-19 Vaccine History Last Done: 09/25/24 22:34
*Nursing Disposition Last Done: 09/25/24 22:34
ED-Skin Assessment Last Done: 09/25/24 21:30
ED- Pulmonary Assessment Last Done: 09/25/24 21:30
ED-Psychological Assessment Last Done: 09/25/24 21:30
ED-EENT Assessment Last Done: 09/25/24 22:34
Discharge Date and Time
Discharge Date/Time: 09/25/24 22:36
Print Language: [place]
== END 2024-09-25 22:36 | disposition home or self-care (01) ==
LOC: EMR 19:20
PROVIDERS: Emergency Medicine; EMERGENCY PHYSICIAN Emergency Medicine
DX: R07.9 Chest pain, unspecified (principal); R42 Dizziness and giddiness; Z79.899 Other long term (current) drug therapy
CPT/HCPCS: 99284; 80053; 84484; 84703; 85025; 93005

== ENCOUNTER 2024-09-26 11:25 | Emergency (ER) | payer OTHER, SELFPAY ==
[2024-09-26 11:30] VITALS: BP 161/97
--- NOTE | 2024-09-26 13:46 | ED.GENMED ---
History of Present Illness
General
Chief Complaint: Visual Problem
Source: patient
Exam Limitations: none
Time Seen by Provider: 09/26/24 12:41
Nursing documentation reviewed up to this point in time: agreed with
History of Present Illness
History of Present Illness:
Patient presents ED secondary to 4-day history of persistent dizziness, photophobia, headache, and 'foggy' sensation. Denies fever or chills. Denies chest pain or shortness of breath. Denies nausea or vomiting. Denies loss of sensation or
weakness. However, patient does feel unsteady when ambulating secondary to her symptoms. Of note, 2 days prior to onset of symptoms, patient was started on Seroquel for the first time secondary to insomnia, which now has been discontinued. In
addition, patient was restarted on Zoloft 2 weeks ago as well, which now also has been discontinued by her psychiatrist secondary to her symptoms. Patient also states that for the past 2 years, she has had nonspecific nausea and decreased appetite,
causing significant weight loss. Patient has been evaluated by her GI physician and has received colonoscopy as well as endoscopy, without identification of etiology of her symptoms.
Past History
Past History
ED Past Medical History: Psychiatric and Other (Frequent episodes of nausea/vomiting. Mononucleosis April 2023)
ED Past Surgical History: None
Patient has exhibited threatening behavior?: No
PSI?: No
Social History
Tobacco: Non-smoker
Alcohol: Occasional
Drug: None
Personal: Single
Living: with family
Employment: Student
Family History
Family History: Other (Noncontributory)
Review of Systems
Review of Systems
Allergies reviewed?: Yes
All Other Systems: ROS reviewed and negative except as documented in HPI and ROS
Constitutional: Reports no symptoms; Denies fever
EENT: Reports no symptoms
Respiratory: Reports no symptoms
Cardiac: Reports no symptoms
ABD/GI: Reports nausea
: Reports no symptoms
Musculoskeletal: Reports no symptoms
Skin: Reports no symptoms
Neurological: Reports dizzy, headache and other (photophobia)
Phy Exam
Physical Exam
Physical Exam:
Physical Exam
General: no apparent distress, not acutely ill. afebrile
Head: nc/at. eomi
Neck: supple. normal range of motion.
Heart: s1/s2 regular rate and rhythm, no murmur.
Lungs: no acute respiratory distress. clear bilaterally
Abdomen: normal bowel sounds. not tender.
Neuro: alert and oriented x 3. no focal neurological deficits. normal speech.
Skin: no rash
Psychiatric: well kept. interactive and cooperative
Extremities: no edema. no calf tenderness.
Course
Orders/Labs/Results
Orders:
Orders
09/26/24 13:44
NEUROLOGY CONSULT Urgent
Consulting Provider: Álvaro Thomas
Was physician already notified: Yes
Reason for consult: dizziness/ataxia
09/26/24 14:47
CT Head & Neck Angio W/wo IV Urgent
Comment:
Reason For Exam: stenosis
Vital Signs
Initial and Last Documented VS:
Initial Vital Signs
Temp Pulse Resp BP Pulse Ox
98.6 F 87 16 161/97 99
09/26/24 11:30 09/26/24 11:30 09/26/24 11:30 09/26/24 11:30 09/26/24 11:30
Last Documented Vital Signs
Temp Pulse Resp BP Pulse Ox
98.6 F 93 20 161/97 98
09/26/24 11:30 09/26/24 16:19 09/26/24 16:19 09/26/24 11:30 09/26/24 16:19
MDM/Problems Addressed
MDM/Problems Addressed:
Patient evaluated in the emergency department by neurology, , who recommends obtaining CTA head/neck.
CTA head/neck report reviewed and discussed with patient/parent and . feels that patient can be discharged home for an outpatient f/u with pmd. As pt is concerned with ongoing dizziness, will try short course of valium at home, as
needed, but not to be taken together with xanax. Patient and father expressed understanding at time of discharge.
*Critical Care Note
Total Time (30-74mins, 75-104mins- exclusive of procedures): Not Applicable
ED Attending Note
-
Portions of this chart may have been created with voice recognition software.� Occasional wrong word or��sound alike� substitutions may have occurred due to the inherent limitations of voice recognition software.
Discharge Plan
Departure
Patient Disposition: Home (Routine Discharge)
Date of Disposition: 09/26/24
Time of Disposition: 16:18
Patient with high blood pressure during this ER visit?: Yes
Condition: Good
Discharge Problem:
Dizziness
Instructions: Dizziness in adults - ED discharge instructions
Prescriptions:
New
diazepam [Valium] 2 mg tablet
2 mg PO TID PRN (Reason: dizziness) Qty: 10 0RF
No Action
clonazepam 1 mg tablet
1 mg PO HS
folic acid 1 mg Tablet
1 mg PO QPM
hydroxyzine pamoate 25 mg capsule
25 mg PO HS
hydroxyzine pamoate 25 mg capsule
25 mg PO DAILYPRN PRN (Reason: anxiety)
Trintellix 10 mg tablet
10 mg PO QPM
dexmethylphenidate [Focalin XR] 25 mg Capsule,Er Biphasic 50-50
25 mg PO DAILY
dicyclomine 20 mg tablet
20 mg PO QID Qty: 20 0RF
prochlorperazine maleate [Compazine] 5 mg tablet
5 mg PO BID PRN (Reason: nausea and vomiting) Qty: 14 0RF
pantoprazole [Protonix] 40 mg tablet,delayed release (DR/EC)
40 mg PO BID Qty: 30 0RF
dicyclomine 20 mg tablet
20 mg PO QID PRN (Reason: abdominal cramping) Qty: 20 0RF
Referrals:
Donaldo Murry DO [Family Provider] -
Stand Alone Forms: Back to School
Activity Restrictions/Additional Instructions:
As discussed, please follow-up with your primary care physician and psychiatrist for reevaluation. Your prescription has been sent electronically to [facility] pharmacy in [place]. Please do not take Xanax and prescribe Valium at the same time.
Interventions
Interventions:
*Risk Screen - Suicide Last Done: 09/26/24 13:34
*General Assessment Last Done: 09/26/24 13:34
*Neglect/Abuse Screening Last Done: 09/26/24 13:34
*ED- Fall Risk Assessment Last Done: 09/26/24 13:34
*ED COVID-19 Vaccine History Last Done: 09/26/24 13:34
*Nursing Disposition Last Done: 09/26/24 16:26
ED- Neurological Assessment Last Done: 09/26/24 13:33
ED-EENT Assessment Last Done: 09/26/24 13:33
Discharge Date and Time
Discharge Date/Time: 09/26/24 16:27
Print Language: [place]
--- NOTE | 2024-09-26 19:57 | CON.NEURO ---
Neuro Assessment/Plan
Assessment
Vertebrobasilar insufficiency
Dizziness worse with turning to the right.
CTA head/neck normal, no dissection
Plan
suspected her VBI due to cervical subluxation, performed gentle OMT atlanto axial, cervical mobilization to equalize rotation but the dizziness persisted.
ok to d/c home
Consultation
Order
Date of Consultation: 09/26/24
Requesting Provider: Pk Bo
Reason for Consult: dizziness
Subjective/Objective
Subjective Data
Date of Service: September 26, 2024
from ED notes:
Patient presents ED secondary to 4-day history of persistent dizziness, photophobia, headache, and 'foggy' sensation. Denies fever or chills. Denies chest pain or shortness of breath. Denies nausea or vomiting. Denies loss of sensation or
weakness. However, patient does feel unsteady when ambulating secondary to her symptoms. Of note, 2 days prior to onset of symptoms, patient was started on Seroquel for the first time secondary to insomnia, which now has been discontinued. In
addition, patient was restarted on Zoloft 2 weeks ago as well, which now also has been discontinued by her psychiatrist secondary to her symptoms. Patient also states that for the past 2 years, she has had nonspecific nausea and decreased appetite,
causing significant weight loss. Patient has been evaluated by her GI physician and has received colonoscopy as well as endoscopy, without identification of etiology of her symptoms.
the dizziness is consistently provoked when she turns her head to the right, or looks to the right
Objective Data
Vital Signs
Temp Pulse Resp BP Pulse Ox
37.0 C 93 20 161/97 98
09/26/24 11:30 09/26/24 16:19 09/26/24 16:19 09/26/24 11:30 09/26/24 16:19
Patient Allergies
metoclopramide [From Reglan] Allergy (Severe, Verified 09/25/24 19:25)
agitation
erythromycin base [Erythromycin Base] Adverse Reaction (Mild, Verified 09/25/24 19:25)
nausea and vomiting
Physical Exam
-
AAOx3, speech clear, language intact
VFF, EOMI, face symmetric
full strength b/l UE/LE
sensation intact temp/vib
DTR normal/symmetric
cervical rotation decreased to the right. palpated atlanto axial subluxation. mild tender right mastoid. Palpated C3, C4 cervical subluxation with tender right paraspinal trigger points.
Medications
-
Home Medications
�Medication �Instructions �Recorded
clonazepam 1 mg tablet 1 mg PO HS Mental Health/Anxiety 12/13/22
folic acid 1 mg tablet 1 mg PO QPM Supplement 12/13/22
hydroxyzine pamoate 25 mg capsule 25 mg PO DAILYPRN PRN anxiety 12/13/22
hydroxyzine pamoate 25 mg capsule 25 mg PO HS ANXIETY 12/13/22
vortioxetine 10 mg tablet 10 mg PO QPM Mental Health/Anxiety 12/13/22
(Trintellix)
dexmethylphenidate 25 mg 25 mg PO DAILY 12/30/22
capsule,extended release
[id number] (Focalin XR)
dicyclomine 20 mg tablet 20 mg PO QID #20 tabs 07/05/23
prochlorperazine maleate 5 mg 5 mg PO BID PRN nausea and 07/07/23
tablet (Compazine) vomiting #14 tabs
pantoprazole 40 mg tablet,delayed 40 mg PO BID #30 tabs 10/17/23
release (Protonix)
dicyclomine 20 mg tablet 20 mg PO QID PRN abdominal 05/07/24
cramping #20 tabs
diazepam 2 mg tablet (Valium) 2 mg PO TID PRN dizziness #10 tabs 09/26/24
== END 2024-09-26 16:27 | disposition home or self-care (01) ==
LOC: EMR 11:25
PROVIDERS: CONSULT PHYSICIAN Psychiatry & Neurology Clinical Neurophysiology; EMERGENCY PHYSICIAN Emergency Medicine; FAMILY PHYSICIAN Family Medicine
DX: R42 Dizziness and giddiness (principal); R03.0 Elevated blood-pressure reading, without diagnosis of hypertension
CPT/HCPCS: 99285; 70496; 70498; Q9967

== ENCOUNTER → 2024-12-07 14:58 | Outpatient (REF) | payer OTHER, SELFPAY | LOC: RAD 14:58 | PROVIDERS: ATTENDING PHYSICIAN Nurse Practitioner Adult Health; FAMILY PHYSICIAN Family Medicine | DX: R10.2 Pelvic and perineal pain (principal) | CPT/HCPCS: 76830; 76856 ==

== ENCOUNTER 2025-05-01 09:31 | Emergency (ER) | payer OTHER, SELFPAY ==
[2025-05-01 09:32] VITALS: BP 148/104
[2025-05-01] MEDS: VALIUM INJECTION 5 MG IV ×2 (11:16→12:38)
[2025-05-01] MEDS: NSS 1000 IV (11:17)
[2025-05-01 11:20] VITALS: BP 118/90
[2025-05-01 11:21] VITALS: BMI 27.8
[2025-05-01 11:36] LABS: Hematocrit 41.2 % (37.0-47.0); Hemoglobin 13.5 g/dL (12.0-16.0); Mean Corp Hgb Conc. 32.8 g/dL (33.0-37.0); Mean Corpuscular Volume 80.3 fL (81.0-99.0); Nucleated Red Blood Cells % 0 %; Platelet Count 216 10^3/uL (130-400); Red Cell Dist. Width 15.1 % (11.5-14.5)
[2025-05-01 11:53] LABS: HCG, Serum Qualitative Screen Negative
[2025-05-01 12:00] VITALS: BP 105/75
[2025-05-01 12:01] LABS: ALT (SGPT) 14 U/L (0-35); AST (SGOT) 21 U/L (14-36); Albumin 5.1 g/dl (3.5-5.0); Alkaline Phosphatase 64 U/L (38-126); Blood Urea Nitrogen 10 mg/dl (7-17); Calcium 9.7 mg/dl (8.4-10.2); Carbon Dioxide 23 mmol/L (22-30); Chloride 106 mmol/L (98-107); Estimated Creatinine Clearance > 125 ml/min; Glucose 105 mg/dl (70-99); Lipase 30 U/L (23-300); Potassium 3.7 mmol/L (3.5-5.1); Sodium 140 mmol/L (135-145); Total Protein 8.1 g/dl (6.3-8.2); eGFR > 60.00
--- NOTE | 2025-05-01 12:37 | ED.GENMED ---
History of Present Illness
General
Chief Complaint: Withdrawal Symptoms
Source: patient and family
Exam Limitations: none
Time Seen by Provider: 05/01/25 10:51
Nursing documentation reviewed up to this point in time: agreed with
History of Present Illness
History of Present Illness:
see MDM
Past History
Past History
ED Past Medical History: Psychiatric and Other (Frequent episodes of nausea/vomiting. Mononucleosis April 2023)
ED Past Surgical History: None
Patient has exhibited threatening behavior?: No
PSI?: No
Social History
Tobacco: Smoker (occ)
Alcohol: Occasional
Drug: Marijuana (occ)
Personal: Single
Living: with family
Employment: Student
Family History
Family History: Other (Noncontributory)
Review of Systems
Review of Systems
Allergies reviewed?: Yes
All Other Systems: Not applicable
Phy Exam
Physical Exam
Physical Exam:
GENERAL: Alert ,intermittent shakiness, arms/legs
EYE: pupils equal and reactive
NECK: Supple
ENT: o/p clr, mmm.
CARDIAC: Regular rate and rhythm .
LUNGS: Clear breath sounds bilaterally, no acute respiratory distress, no wheezes/rales/rhonchi
ABDOMEN: Soft, without focal tenderness, no r/g, no cvat, normal bowel sounds
NEUROLOGICAL: Alert and oriented, no focal neuro deficits
SKIN: Warm and dry, skin intact.
MUSCULOSKELETAL: No edema, well perfused. neg chente's sign
PSYCH: anxious at times
Course
Orders/Labs/Results
Orders:
Orders
05/01/25 10:59
Electrocardiogram (*1) Urgent
Reason for Study: QTc Monitoring
EKG- Treatment ONCE
05/01/25 11:00
0.9% Sodium Chloride 1000 ml [Nss] 1,000 ml IV BOLUS
diazePAM [Valium Injection] 5 mg IV NOW STA
Test Result ONCE
05/01/25 11:20
Complete Blood Count/With Diff Urgent
Comprehensive Metabolic Panel Urgent
HCG, Serum Qualitative Screen Urgent
Lipase Urgent
05/01/25 12:33
diazePAM [Valium Injection] 5 mg IV NOW STA
Abnormal Lab Results
05/01/25
11:20
MCV 80.3 L fL
(81.0-99.0)
MCH 26.3 L pg
(27.0-31.0)
MCHC 32.8 L g/dL
(33.0-37.0)
RDW 15.1 H %
(11.5-14.5)
Absolute Lymphs (auto) 1.1 L 10^3/uL
(1.2-3.4)
Neutrophils % 77.2 H %
(42.2-75.2)
Lymphocytes % 14.2 L %
(20.5-51.1)
Glucose 105 H mg/dl
(70-99)
Albumin 5.1 H g/dl
(3.5-5.0)
05/01/25 11:20
05/01/25 11:20
Vital Signs
Initial and Last Documented VS:
Initial Vital Signs
Temp Pulse Resp BP Pulse Ox
37.0 C 95 18 148/104 95
05/01/25 09:32 05/01/25 09:32 05/01/25 09:32 05/01/25 09:32 05/01/25 09:32
Last Documented Vital Signs
Temp Pulse Resp BP Pulse Ox
37.0 C 103 17 128/68 98
05/01/25 09:32 05/01/25 13:45 05/01/25 13:45 05/01/25 14:00 05/01/25 13:45
MDM/Problems Addressed
Differential Diagnosis Includes:
see MDM
MDM/Problems Addressed:
Note:
CHIEF COMPLAINT(S)
Withdrawal symptoms from Paroxetine.
HISTORY OF PRESENT ILLNESS
The patient is a 25-year-old female who presented with distress due to withdrawal symptoms from Paroxetine, which she has recently resumed. She reports that her psychiatrist is aware of her condition. The patient had been on Paroxetine since January or
February, with a dosage of 20 mg. She ran out of the medication, missing doses from Wednesday through Wednesday, and resumed taking it yesterday after obtaining a refill. Physical symptoms have become overwhelming, including severe restlessness, an
inability to sleep for two days, persistent nausea with vomiting, and probable dehydration due to inadequate fluid intake. She describes her legs as 'super super restless' and her head as not feeling 'right.' The patient reports feeling extremely
distressed and physically uncomfortable, affecting her daily functioning significantly. She also took Lorazepam at 4 a.m., 0.5 mg. She has been on Lorazepam occasionally but reports a higher tolerance to medications, having previously stopped taking
Alprazolam in January. The patient denies any suicidal ideation or intent to harm herself, and describes these symptoms as being directly caused by the interruption in her Paroxetine regimen.
PAST MEDICAL HISTORY
Paroxetine withdrawal
Occasional use of Lorazepam
SOCIAL HISTORY
The patient occasionally smokes marijuana but is not a daily user.
MEDICATIONS
Paroxetine 20 mg (resumed after recent interruption)
Occasional Lorazepam 0.5 mg
Caplyta (dose not specified)
Folic acid
REVIEW OF SYSTEMS
- Psychiatric: Reports feelings of restlessness, inability to sleep, and distress.
- Gastrointestinal: Nausea with vomiting and inability to retain fluids.
- Neurological/ Musculoskeletal: Severe restlessness in legs.
PHYSICAL EXAM
- Nursing notes reviewed and vital signs reviewed.
PLAN
- Obtain blood work and administer intravenous fluids.
- Administer Lorazepam to help control withdrawal symptoms.
DIFFERENTIAL DIAGNOSIS
The Differential Diagnosis includes, in no particular order and is not limited to:
1. Paroxetine withdrawal syndrome
2. Dehydration secondary to vomiting
3. Generalized anxiety disorder
4. Acute stress reaction
5. Insomnia related to withdrawal
6. Hyperemesis
7. Restless leg syndrome
8. Substance-induced mood disorder
9. Benzodiazepine withdrawal (considered unlikely per patient history)
10. Cannabis withdrawal (considered unlikely per patient history)
CARE-UPDATE
05/01/25 - 12:33
Patient reports ongoing anxiety and restlessness due to physical withdrawal symptoms. Current lab workup shows no abnormalities in electrolytes, white blood cell count, kidney function, or EKG. Despite administration of 5 mg of Diazepam (Valium),
the patient did not achieve the desired relaxation. High tolerance noted, with the patients history of prolonged medication use, including benzodiazepines and sleep aids. Due to a shortage of Ativan IV, alternative management with Xanax (Alprazolam)
was considered, recalling previous effectiveness. The patient expressed concerns about the efficacy of oral medications and reluctance to be discharged until symptoms are controlled. No immediate plans to adjust her Paxil, which she has been back on
for two days after a lapse due to refill issues. Considering an additional 5 mg of Diazepam for symptom relief.\\
05/01/25 - 13:38
Patient reports persistent anxiety related to Paxil withdrawal, despite feeling slightly improved since restarting medication with two doses. Anxiety, particularly concerning tomorrow, exacerbates symptoms such as transient heart rate increases and
jolt-induced wakefulness. The patient confirms feeling better post-Valium administration and considers using 1 mg doses instead of 0.5 mg when anxiety is overwhelming. Instructed to avoid simultaneous use of Lunesta and benzodiazepines. Patients
concern over potential blood clots reviewed; family history of blood clots noted but deemed low risk given current symptoms. Encouraged to return if symptoms worsen. Plan to gradually resume 0.5 mg dosing in the coming days as anxiety stabilizes.
Advised the short-term use of benzodiazepines for acute symptoms and reassured about the safety of prescribed dosages. Encouraged to communicate any new or worsening symptoms promptly.
*Pulse Oximetry
SaO2: 97
Oxygen Mode of Delivery: Room air
Patient hypoxic: no (95)
*Critical Care Note
Total Time (30-74mins, 75-104mins- exclusive of procedures): Not Applicable
ED Attending Note
-
Portions of this chart may have been created with voice recognition software.� Occasional wrong word or��sound alike� substitutions may have occurred due to the inherent limitations of voice recognition software.
Discharge Plan
Departure
Patient Disposition: Home (Routine Discharge)
Date of Disposition: 05/01/25
Time of Disposition: 14:06
Patient with high blood pressure during this ER visit?: No
Condition: Fair
Covid-19: Not Applicable
Discharge Problem:
Anxiety, Drug withdrawal
Instructions: Anxiety, Adult (DC)
Prescriptions:
No Action
clonazepam 1 mg tablet
1 mg PO HS
folic acid 1 mg Tablet
1 mg PO QPM
hydroxyzine pamoate 25 mg capsule
25 mg PO HS
hydroxyzine pamoate 25 mg capsule
25 mg PO DAILYPRN PRN (Reason: anxiety)
Trintellix 10 mg tablet
10 mg PO QPM
dexmethylphenidate [Focalin XR] 25 mg Capsule,Er Biphasic 50-50
25 mg PO DAILY
dicyclomine 20 mg tablet
20 mg PO QID Qty: 20 0RF
prochlorperazine maleate [Compazine] 5 mg tablet
5 mg PO BID PRN (Reason: nausea and vomiting) Qty: 14 0RF
pantoprazole [Protonix] 40 mg tablet,delayed release (DR/EC)
40 mg PO BID Qty: 30 0RF
dicyclomine 20 mg tablet
20 mg PO QID PRN (Reason: abdominal cramping) Qty: 20 0RF
diazepam [Valium] 2 mg tablet
2 mg PO TID PRN (Reason: dizziness) Qty: 10 0RF
Referrals:
Donaldo Murry DO [Family Provider, Family Practice]
Activity Restrictions/Additional Instructions:
YOUR SYPMTOMS WERE PROBABLY FROM WITHDRAWAL FROM YOUR PAXIL
YOU CAN TRY TAKING A DOSE OF ATIVAN EITHER 0.5 MG OR 1 MG EVERY 8 HOURS NEEDED
MAYBE SKIP YOUR LUNESTA WHILE ON THIS
RETURN FOR ANY CONCERNS.
Interventions
Interventions:
*Risk Screen - Suicide Last Done: 05/01/25 09:32
*General Assessment Last Done: 05/01/25 09:32
*Neglect/Abuse Screening Last Done: 05/01/25 11:25
*ED- Fall Risk Assessment Last Done: 05/01/25 11:25
*ED COVID-19 Vaccine History Last Done: 05/01/25 11:25
*ED Influenza Vaccine History Last Done: 05/01/25 11:25
*Nursing Disposition Last Done: 05/01/25 14:23
ED- Neurological Assessment Last Done: 05/01/25 11:25
ED-Psychological Assessment Last Done: 05/01/25 11:25
Discharge Date and Time
Discharge Date/Time: 05/01/25 14:24
Print Language: GREENLANDIC
[2025-05-01 13:00] VITALS: BP 113/71
[2025-05-01 14:00] VITALS: BP 128/68
== END 2025-05-01 14:24 | disposition home or self-care (01) ==
LOC: EMR 09:31
PROVIDERS: Physician Assistant; EMERGENCY PHYSICIAN Emergency Medicine; FAMILY PHYSICIAN Family Medicine
DX: F19.939 Other psychoactive substance use, unspecified with withdrawal, unspecified (principal); F12.90 Cannabis use, unspecified, uncomplicated; F17.200 Nicotine dependence, unspecified, uncomplicated
CPT/HCPCS: 99284; 96374; 96376; 96361; 80053; 83690; 84703; 85025; 93005